=== PATIENT | female | born 1990 | race American Indian/Alaskan Native ===

== ENCOUNTER 2016-11-25 07:10 | Emergency (ER) | payer SELFPAY ==
--- NOTE | 2016-11-25 09:56 | Emergency Department Report ---
ED Female HPI - General Chief complaint: Urogenital-Female Stated complaint: VAGINAL DISCHARGE Time Seen by Provider: 11/25/16 09:55 Source: patient Mode of arrival: Ambulatory Limitations: No Limitations - History of Present Illness Initial comments: Patient is a 26-year-old female who presents to ED complaining creamy, foul odor , yellowish vaginal discharge 3 days. Patient states that she discharges moderate in nature. Patient states she had unprotected intercourse recently. She states last menstrual period was . Patient denies contraceptive use. Patient denies any other problems. Patient denies fever assess chills/nausea/vomiting/dysuria/itching/dyspareunia - Related Data Previous Rx's Medication Instructions Recorded Last Taken Type metroNIDAZOLE [Flagyl TAB] 500 mg PO Q12HR 7 Days 11/25/16 Unknown Rx Allergies Allergy/AdvReac Type Severity Reaction Status Date / Time No Known Allergies Allergy Unverified 11/25/16 07:20 ED Review of Systems ROS: Stated complaint: VAGINAL DISCHARGE Other details as noted in HPI Constitutional: denies: chills, fever Eyes: denies: eye pain, eye discharge, vision change ENT: denies: ear pain, throat pain, dental pain, hearing loss Respiratory: denies: cough, orthopnea, shortness of breath, wheezing Cardiovascular: denies: chest pain, palpitations Endocrine: no symptoms reported Gastrointestinal: denies: abdominal pain, nausea, vomiting, diarrhea, constipation, hematemesis Genitourinary: frequency, discharge. denies: urgency, dysuria, hematuria, abnormal menses, dyspareunia Musculoskeletal: denies: back pain, joint swelling, arthralgia Skin: denies: rash, lesions, pruritus Neurological: denies: headache, weakness, paresthesias, confusion Psychiatric: denies: anxiety, depression Hematological/Lymphatic: denies: easy bleeding, easy bruising ED Past Medical Hx - Past Medical History Previous Medical History?: No - Surgical History Past Surgical History?: No - Social History Smoking Status: Never Smoker Substance Use Type: None - Medications Home Medications: Home Medications Medication Instructions Recorded Confirmed Last Taken Type metroNIDAZOLE [Flagyl TAB] 500 mg PO Q12HR 7 Days 11/25/16 Unknown Rx ED Physical Exam - General Limitations: No Limitations General appearance: alert, in no apparent distress - Head Head exam: Present: atraumatic, normocephalic - Eye Eye exam: Present: normal appearance, PERRL, EOMI - ENT ENT exam: Present: mucous membranes moist - Neck Neck exam: Present: normal inspection - Respiratory Respiratory exam: Present: normal lung sounds bilaterally. Absent: respiratory distress, wheezes, rales, rhonchi - Cardiovascular Cardiovascular Exam: Present: regular rate, normal rhythm. Absent: systolic murmur, diastolic murmur, rubs, gallop - GI/Abdominal GI/Abdominal exam: Present: soft, normal bowel sounds. Absent: distended, tenderness, guarding, rebound - Rectal Rectal exam: Present: normal inspection - External exam: Present: normal external exam. Absent: erythema, swelling, lesions, bleeding Speculum exam: Present: normal speculum exam, vaginal discharge, cervical discharge. Absent: erythema, vaginal bleeding, foreign body, tissue, laceration Bi-manual exam: Present: normal bi-manual exam. Absent: cervical motion tendernes, adnexal tenderness, adnexal mass, uterine enlargement, uterine tenderness - Extremities Exam Extremities exam: Present: normal inspection, full ROM, normal capillary refill. Absent: tenderness, pedal edema, joint swelling - Back Exam Back exam: Present: normal inspection - Neurological Exam Neurological exam: Present: alert, oriented X3, CN II-XII intact, normal gait. Absent: motor sensory deficit - Psychiatric Psychiatric exam: Present: normal affect, normal mood - Skin Skin exam: Present: warm, dry, intact, normal color. Absent: rash ED Course Vital Signs 11/25/16 11/25/16 07:18 12:08 Temperature 98.2 F 99 F Pulse Rate 86 78 Respiratory 14 Rate Blood Pressure 130/74 Blood Pressure 117/71 [Left] O2 Sat by Pulse 99 Oximetry ED Medical Decision Making - Medical Decision Making [age]-year-old female presents with anterior vaginal disease. ED course: Patient received 250 mg IM Rocephin. Patient also received a gram azithromycin. UPT negative. UA negative for bacteria. Discussed to follow up with a [employer] [employer] physicians as referred. Patient states she does not have a [employer] [employer] doctor because she just moved to [place]. Discussed to follow up with one of this referrals. Discussed safe sex STD prevention. Discussed inpatient treatment in ED. Discussed to take antibiotic as prescribed. Patient she states verbal understanding and compliance to follow-up Critical care attestation.: If time is entered above; I have spent that time in minutes in the direct care of this critically ill patient, excluding procedure time. ED Disposition Clinical Impression: Bacterial vaginosis Disposition: DISCHARGED TO HOME OR SELFCARE Is pt being admited?: No Does the pt Need Aspirin: No Condition: Stable Instructions: Bacterial Vaginosis (ED), Safe Sex (ED), Sexually Transmitted Diseases (ED) Prescriptions: metroNIDAZOLE [Flagyl TAB] 500 mg PO Q12HR 7 Days Referrals: PRIMARY CAREMD [Primary Care Provider] - 3-5 Days DAMON MALAVE MD [Staff Physician] - 3-5 Days MADHAV CHAPMAN MD [Staff Physician] - 3-5 Days JENNY CASTILLO [[employer]] - 3-5 Days AREN PAREKH CNM [Advanced Practice Nurse] - 3-5 Days GHULAM MARIO CNM [Advanced Practice Nurse] - 3-5 Days LEONEL PETERSON MD [Staff Physician] - 3-5 Days [facility] [Outside] - 3-5 Days [facility] [Outside] - 3-5 Days [facility] [Outside] - 3-5 Days Forms: STI Treatment and Prevention, Work/School Release Form(ED) Time of Disposition: 12:29
[2016-11-25 12:09] VITALS: BP 117/71
[2016-11-25 12:13] LABS: Bilirubin,Urine NEG (Negative); Blood,Urine SM (Negative); Ketones,Urine 80 mg/dL (Negative); Leukocyte Esterase,Urine MOD (Negative); Mucus,Urine 3+ /HPF; Nitrite,Urine NEG (Negative); Protein,Urine <15 mg/dL mg/dL (Negative); Urobilinogen,Urine < 2.0 mg/dL (<2.0)
[2016-11-25] MEDS ORDERED: ZITHROMAX PO ONE (12:29)
[2016-11-25] MEDS ORDERED: XYLOCAINE 1% MPF 5 mL INFILTRATI ONE (12:29)
[2016-11-25] MEDS ORDERED: ROCEPHIN IM ONE (12:29)
== END 2016-11-25 12:59 | disposition home or self-care (01) ==
LOC: ED 07:10
DX: N76.0 Acute vaginitis (principal); B96.89 Other specified bacterial agents as the cause of diseases classified elsewhere
CPT/HCPCS: 81001; 81025; 87210; 87591; 96372; 99284; J0696